=== PATIENT | male | born 1980 | race Hispanic/Latino ===

== ENCOUNTER 2021-02-10 13:10 | Emergency (ER) | payer OTHER ==
[~2021-02-10] VITALS: Ht 175.3 cm; Wt 88.8 kg
[2021-02-10 13:11] VITALS: BP 156/83
[2021-02-10] MEDS ORDERED: BOOSTRIX/ADACEL VACCINE (DIPHTH/PERTUSS/ACELL/TETANUS) 0.5ML SYR IM ONE (14:10)
[2021-02-10] MEDS ORDERED: LIDOCAINE 2% MDV 20ML VIAL SC ONE (14:10)
== END 2021-02-10 15:01 | disposition home or self-care (01) ==
LOC: M ED 13:10
DX: S01.81XA Laceration without foreign body of other part of head, initial encounter (principal); Y92.009 Unspecified place in unspecified non-institutional (private) residence as the place of occurrence of the external cause; Y93.9 Activity, unspecified; Y99.9 Unspecified external cause status

== ENCOUNTER → 2022-01-16 | Outpatient (CLI) | payer OTHER | LOC: M RAD 06:19 | PROVIDERS: ATTEND Physician Assistant | DX: I10 Essential (primary) hypertension (principal) ==

== ENCOUNTER → 2022-05-16 | Outpatient (CLI) | payer OTHER ==
[~2022-05-16] MED LIST: ISOVUE-370 76% 100ML VIAL As Ordered ONE
== END ==
LOC: M RAD 07:46
PROVIDERS: ATTEND Physician Assistant
DX: I70.1 Atherosclerosis of renal artery (principal); I10 Essential (primary) hypertension
CPT/HCPCS: 74175; Q9967

== ENCOUNTER → 2022-08-06 | Outpatient (REF) | payer OTHER | LOC: M LAB REF 17:26 | PROVIDERS: ATTEND Internal Medicine Nephrology | DX: I10 Essential (primary) hypertension (principal) ==

== ENCOUNTER → 2022-09-10 | Outpatient (CLI) | payer OTHER | LOC: M SOG 15:01 | PROVIDERS: ATTEND Physician Assistant | DX: M79.641 Pain in right hand (principal) ==

== ENCOUNTER 2022-09-30 06:48 | Day surgery (SDC) | payer OTHER ==
[~2022-09-30] VITALS: Ht 175.3 cm; Wt 95.3 kg
[~2022-09-30 06:48] MED LIST changes: +AMLO1TAB24 PO; +HYDR12CA PO; -ISOVUE-370 76% 100ML VIAL As Ordered ONE; +VALS1TAB67 PO
[2022-09-30] MEDS ORDERED: LR 1,000 ML IV SCH (07:40)
[2022-09-30] MEDS ORDERED: BACITRACIN OINTMENT 30GM TUBE As Ordered ONE (08:35)
[2022-09-30] MEDS ORDERED: BUPIVACAINE HCL 0.25% 10ML VIAL As Ordered ONE (08:35)
[2022-09-30] MEDS ORDERED: ceFAZolin 2 GM/D5W 50 ML IV BAG As Ordered ONE (08:53)
[2022-09-30] MEDS ORDERED: ONDANSETRON 4MG 2ML VIAL As Ordered ONE (09:05)
[2022-09-30] MEDS ORDERED: KETOROLAC 60MG 2ML VIAL As Ordered ONE (09:05)
[2022-09-30] MEDS ORDERED: fentaNYL 100 MCG/2 ML INJECTION As Ordered ONE (09:05)
[2022-09-30] MEDS ORDERED: METOCLOPRAMIDE INJ 10MG/2ML VIAL As Ordered ONE (09:05)
[2022-09-30] MEDS ORDERED: MIDAZOLAM INJ 2MG/2ML VIAL As Ordered ONE (09:05)
[2022-09-30] MEDS ORDERED: propofoL 200 MG/20 ML VIAL As Ordered ONE (09:05)
[2022-09-30] MEDS ORDERED: LIDOCAINE 2% 100MG/5ML SDV (FOR ANES.) As Ordered ONE (09:05)
[2022-09-30] MEDS ORDERED: ACETAMINOPHEN 1000MG 100ML IV BAG As Ordered ONE (09:06)
[2022-09-30] MEDS ORDERED: METOCLOPRAMIDE INJ 10MG/2ML VIAL IV PRN (10:05)
[2022-09-30] MEDS ORDERED: oxyCODONE 5MG TAB PO PRN (10:05)
[2022-09-30] MEDS ORDERED: ONDANSETRON 4MG 2ML VIAL IV PRN (10:05)
[2022-09-30] MEDS ORDERED: PERC5TAB12 PO (10:10)
[2022-09-30 11:45] VITALS: BP 126/82
== END 2022-09-30 11:50 | disposition home or self-care (01) ==
LOC: M SDC 06:48
PROVIDERS: ATTEND Orthopaedic Surgery Hand Surgery
DX: M24.541 Contracture, right hand (principal); I10 Essential (primary) hypertension; G47.30 Sleep apnea, unspecified; Z79.899 Other long term (current) drug therapy
CPT/HCPCS: 26123; 76000; J1100; J2405

== ENCOUNTER → 2023-01-21 | Outpatient (REF) | payer OTHER ==
[~2023-01-21] MED LIST changes: +PERC5TAB12 PO
== END ==
LOC: M LAB REF 16:53
PROVIDERS: ATTEND Internal Medicine Nephrology
DX: E29.1 Testicular hypofunction (principal)